=== PATIENT | male | born 1970 | race Caucasian/White ===

== ENCOUNTER → 2021-03-16 | Outpatient (CLI) | payer OTHER | LOC: EXRD 15:02 | DX: M54.9 Dorsalgia, unspecified (principal); M45.9 Ankylosing spondylitis of unspecified sites in spine; G89.29 Other chronic pain | CPT/HCPCS: 72202 ==

== ENCOUNTER → 2021-05-02 | Outpatient (CLI) | payer OTHER | LOC: KOH-I 13:13 | DX: M45.9 Ankylosing spondylitis of unspecified sites in spine (principal); M47.816 Spondylosis without myelopathy or radiculopathy, lumbar region; M47.818 Spondylosis without myelopathy or radiculopathy, sacral and sacrococcygeal region | CPT/HCPCS: 72195 ==